=== PATIENT | female | born 1970 | race Caucasian/White ===

== ENCOUNTER 2016-04-28 16:43 | Emergency (ER) | payer OTHER ==
[~2016-04-28] VITALS: Ht 160 cm; Wt 67.3 kg
[2016-04-28] MEDS ORDERED: [UNRECOGNIZED DRUG - OTHER] PO (17:15)
[2016-04-28] MEDS ORDERED: KETOROLAC TROMETHAMINE 60 MG/2 ML VIAL IM ONE (21:15)
[2016-04-28] MEDS ORDERED: METHOCARBAMOL 500 MG TABLET PO ONE (21:15)
[2016-04-28 22:10] VITALS: BP 111/69
== END 2016-04-28 22:31 | disposition home or self-care (01) ==
LOC: EMS 16:46
DX: R07.89 Other chest pain (principal)
CPT/HCPCS: 71010; 96372; 99283; J1885